=== PATIENT | female | born 1980 | race Caucasian/White ===

== ENCOUNTER 2017-11-21 14:24 | Emergency (ER) | payer SELFPAY ==
[~2017-11-21] VITALS: Ht 152.4 cm; Wt 81.8 kg
[2017-11-21 16:26] LABS: BASOPHIL (%) 0.4 % (0-1); EOSINOPHIL (%) 2.6 % (0-5); EOSINOPHIL COUNT 0.1 K/uL (0-0.3); HEMATOCRIT 37.1 % (36.0-46.0); HEMOGLOBIN 12.4 G/DL (11.9-15.5); IMMATURE GRANULOCYTE (%) 0.2 % (0.0-0.7); LYMPHOCYTE (%) 27.6 % (15-42); LYMPHOCYTE COUNT 1.5 K/uL (1.0-2.8); MCH 28.6 PG (29.0-34.0); MCHC 33.4 G/DL (30.0-36.0); MCV 85.5 FL (83-99); MONOCYTE (%) 9.9 % (3-12); MONOCYTE COUNT 0.5 K/uL (0-0.8); NEUTROPHIL (%) 59.3 % (45-76); NEUTROPHIL COUNT 3.2 K/uL (1.8-6.4); PLATELET COUNT 332 K/uL (156-360); RBC DIS.WIDTH-CV 12.9 % (11.8-14.6); RBC DIS.WIDTH-SD 39.8 % (39-53); RED BLOOD COUNT 4.34 M/uL (3.80-5.20); WHITE BLOOD COUNT 5.4 K/uL (4.1-10.2)
[2017-11-21 16:33] LABS: ALBUMIN 4.5 g/dL (3.2-4.8); CHLORIDE 103 mEq/L (99-109); POTASSIUM 3.3 mEq/L (3.7-5.4); SODIUM 142 mEq/L (136-147)
[2017-11-21 16:36] LABS: GLUCOSE 102 mg/dL (70-99); TOTAL PROTEIN 7.4 g/dL (6.4-8.3)
[2017-11-21 16:37] LABS: TOTAL BILIRUBIN 0.5 mg/dL (0.0-1.0)
[2017-11-21 16:39] LABS: ALKALINE PHOSPHATASE 82 IU/L (3-129); CREATININE 0.7 mg/dL (0.6-1.3); GFR ESTIMATE (CALCULATED) > 59 mL/min/
[2017-11-21 16:40] LABS: UREA NITROGEN (BUN) 14 mg/dL (9-23)
[2017-11-21 16:41] LABS: AST (GOT) 11 IU/L (2-34)
[2017-11-21 16:42] LABS: ALT (GPT) 16 IU/L (3-49)
[2017-11-21 16:43] LABS: LIPASE 31 U/L (1.0-51.0)
[2017-11-21 18:50] LABS: QUANTITATIVE HCG < 4.0 MIU/ML
[2017-11-21 19:08] LABS: APPEARANCE SL.HAZY ((CLEAR)); BILIRUBIN NEGATIVE; BLOOD NEGATIVE; COLOR YELLOW ((YELLOW)); GLUCOSE (STRIP) NEGATIVE; KETONES NEGATIVE; LEUKOCYTES TRACE; NITRITE POSITIVE; PROTEIN (STRIP) 30; SPECIFIC GRAVITY 1.021 (1.000-1.030); UROBILINOGEN 0.2 MG/DL (0.2-1.0)
[2017-11-21 19:17] LABS: BACTERIA 2+ /HPF; EPITHELIAL CELLS 2+ /HPF; MUCUS 3+ /LPF; RED BLOOD CELLS 0-5 /HPF (0-5); WHITE BLOOD CELLS 0-5 /HPF (0-5)
[2017-11-21] MEDS ORDERED: NORCO 5/3251 TABLET PO (20:00)
[2017-11-21] MEDS ORDERED: BACTRIM,SEPT1 TABLET PO (20:02)
[2017-11-21 20:08] VITALS: BP 165/95
== END 2017-11-21 20:09 | disposition home or self-care (01) ==
LOC: EME 14:24
PROVIDERS: Emergency Medicine
DX: N39.0 Urinary tract infection, site not specified (principal); B96.20 Unspecified Escherichia coli [E. coli] as the cause of diseases classified elsewhere; Z16.11 Resistance to penicillins; Z16.23 Resistance to quinolones and fluoroquinolones; Z16.29 Resistance to other single specified antibiotic; S31.105A Unspecified open wound of abdominal wall, periumbilic region without penetration into peritoneal cavity, initial encounter; N80.9 Endometriosis, unspecified
CPT/HCPCS: 74177; 80053; 81003; 81025; 83690; 84702; 85025; 87077; 87086; 87186; 99281; 99285; J2405; J3010